=== PATIENT | female | born 2000 | race Asian ===

== ENCOUNTER 2020-01-08 15:32 | Inpatient (IN) ==
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
[2020-01-08 16:20] LABS: Basophils # (auto) 0.01 K/uL (0-0.2); Basophils % (auto) 0.2 %; Eosinophils # (auto) 0.03 K/uL (0-0.5); Eosinophils % (auto) 0.7 %; Hematocrit (blood only) 37.7 % (37-47); Hemoglobin 13.1 g/dL (12.0-16.0); Immature Granulocytes # (auto) 0.01 K/uL (0.00-0.02); Immature Granulocytes % (auto) 0.2 %; Lymphocytes # (auto) 0.96 K/uL (1.2-3.4); Lymphocytes % (auto) 21.3 %; Mean Corpuscular Hgb Conc 34.7 g/dL (32-36); Mean Corpuscular Volume 86.5 fL (80-100); Mean Platelet Volume 8.5 fL (7.4-10.4); Monocytes # (auto) 0.19 K/uL (0.11-0.59); Monocytes % (auto) 4.2 %; Neutrophils # (auto) 3.31 K/uL (1.4-6.5); Neutrophils % (auto) 73.4 %; Platelet Count 264 K/uL (130-400); RDW Coefficient of Variation 12.4 % (11.5-14.5); RDW Standard Deviation 39.2 fL (36.4-46.3); Red Blood Count 4.36 M/uL (4.2-5.4); White Blood Count 4.51 K/uL (4.8-10.8)
[2020-01-08 17:01] LABS: BUN Creatinine Ratio 14.3 (10-20); Calcium 9.1 mg/dl (8.5-10.1); Creatinine Clr Calc Pharmacy 123.8 ml/min; Est GFR (African American) 144.2; Est GFR (Non-African American) 124.4; Potassium 3.8 mmol/L (3.5-5.1)
[2020-01-08 17:16] LABS: Albumin Globulin Ratio 1.1 (0.9-2); Bilirubin,Total 0.4 mg/dl (0.2-1); Globulin 3.5 gm/dl (2.5-4.0); Thyroid Stimulating Hormone 0.851 uIu/ml (0.300-4.500); Total Protein 7.5 gm/dl (6.4-8.2)
[2020-01-08 17:26] LABS: Acetaminophen < 2 ug/ml (10-30); Salicylate < 1.7 mg/dl (2.8-20)
[2020-01-08 17:54] LABS: Appearance Urine Clear (Clear); Bilirubin Urine Negative (Negative); Blood Urine Negative (Negative); Color Urine Yellow; Glucose Urine UA Negative (Negative); Ketones Urine Negative (Negative); Leukocyte Esterase Urine Negative (Negative); Nitrite Urine Negative (Negative); Protein Urine Negative (Negative); Specific Gravity Urine 1.014 (1.000-1.030); Urobilinogen Urine Negative (Negative)
[2020-01-08 18:21] LABS: Amphetamines+Metham, Urine Neg (Neg); Barbiturates, Urine Neg (Neg); Benzodiazepine, Urine Neg (Neg); Cocaine, Urine Neg (Neg); MDMA (Ecstacy), Urine Neg (Neg); Methadone, Urine Neg (Neg); Opiate, Urine Neg (Neg); Phencyclidine, Urine Neg (Neg)
[2020-01-08] MEDS ORDERED: ALUMINUM/MAGNESIUM SUSP 30 ML UDC PO PRN (19:37)
[2020-01-08] MEDS ORDERED: ACETAMINOPHEN 325 MG TAB PO PRN (19:37)
[2020-01-08] MEDS ORDERED: BISMUTH SUBSALICYLATE PER ML OMNICELL CHARGE PO PRN (19:37)
[2020-01-08] MEDS ORDERED: MAGNESIUM HYDROXIDE SUSP 30 ML UDC PO PRN (19:37)
[2020-01-08] MEDS ORDERED: SODIUM CHLORIDE 0.65% NA SOLN 45 ML (OCEAN) PRN (19:37)
[2020-01-08] MEDS: NICOTINE 14 MG/24 HR PATCH TD SCH (21:34)
[2020-01-08] MEDS ORDERED: DOXEPIN HCL 10 MG CAPSULE PO SCH (22:00)
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
[2020-01-09] MEDS: FLUOXETINE HCL 20 MG CAP PO SCH (07:47)
[2020-01-09] MEDS: NICOTINE 14 MG/24 HR PATCH TD SCH (22:52)
--- NOTE | 2020-01-10 08:05 | Psychiatric Progress Note ---
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 These symptoms occurred in the context of interpersonal discord with a new romantic relationship, and appeared consistent with her diagnosis of BPD. She signed in voluntarily, but immediately requested to leave AMA, and has been informed that we will need to mitigate her risk factors before discharging her. Pt did participate in beneficial 1:1 counseling last evening, and also called her parents for a family meeting to discuss safety and discharge planning. Present plan is for patient to return to [place] and live with her parents until the start of fall. Pt was informed that discharge today was not felt to be appropriate, given desire to solidify aftercare/safety plans by ensuring patient has a bridge appointment with her psychiatric providers before she would return to [place] for the summer. Pt verbalized understanding and is agreeable with discharge tomorrow prior to the expiration of her 72-hour notice. Pt reported willingness to call her roommate and friend to plan a way for her doxepin to be brought to the unit for safe disposal, as the medication has been discontinued. (1) Borderline personality disorder: 01/08 -care coordinated with outpatient psychiatrist Dr. Butts, primary diagnosis BPD. Coordinate care with therapist, Yumiko Montana. -Continue inpatient treatment due to ongoing suicide risk. Every 15 minute checks for safety. -Encourage group attendance and participation. Work on healthy coping skills and discharge safety plan. -Discontinue doxepin due to high risk of in overdose. Recommend friend bring the medication into the hospital for safe disposal, as she has a 90-day supply. -Continue fluoxetine 40 mg daily. Recent mood symptoms likely due to personality disorder, is triggered by interpersonal discord, and patient reports mood was good a week ago prior to incident with new boyfriend. -Family meeting with parents and social media marketing specialist today. Explore options of returning home to [place], or staying locally. -Patient has submitted 72-hour notice requesting to withdrawal from treatment. Advised her that I cannot discharge her as risk factors have not been mitigated and she remains at risk for suicide. Consider need to involuntarily commit her if we are unable to appropriately mitigate risk in the 72-hour timeframe. 01/09 - Continue fluoxetine 40mg daily; patient aware that doxepin has been discontinued - Friend/roommate to bring in remaining doxepin for it to be disposed of - Reported plan is for patient to return to [place] at the end of the month, live with parents, and return when fall resumes - Attempt to schedule bridge therapy and medication management appointments prior to her departure home to [place] - Pt denies SI, is able to discuss various coping strategies - Encourage completion of the safety plan Risk Factors Assessment Male: No : No Do You Have Access To A Gun?: No Health Problems: No Mental Health Diagnoses: Yes Substance Use Disorders: No Previous Attempt: Yes Previous Attempt; Highly Lethal: Yes Previous Attempt; Didn't Tell Anyone: Yes Family History of Suicide: No Previous Psychiatric Hospitalization: No Hopelessness: No Smoker: Yes Protective Factors Assessment : No Responsible for Young Children: No Employed: No Stable Relationships: No Supportive Family: Yes Good Rapport with Provider: Yes Interval History Identifying Information ROCIO PETERS is a 19-year-old F [employer] student from [place], has a history of depression, anxiety, and borderline personality disorder, and was admitted on 01/08/20 18:46 on a 201 voluntary commitment for suicidality with multiple plans and an intentional overdose on doxepin last week. She immediately submitted a 72-hour notice requesting to withdrawal from treatment. Chief Complaint "I feel better now. Everything is good, I had a good talk last night." Review of Systems Notes Constitutional: reports restful sleep last evening, despite not taking a sleep medication Cardiovascular: denied Respiratory: denied Gastrointestinal: denied Neurological: denied Psychiatric: denies symptoms other than stated above Total of at least 10 systems reviewed, pertinent positives as above and in HPI. Sleep Information Total Hours of Sleep: 7.75 Sleep Comments: pt on q-15 minute checks Meal Information Percent Meal Consumed - Breakfast: 75 Percent Meal Consumed - Lunch: 100 Percent Meal Consumed - Dinner: 75 Nutrition Comment: per meal record Subjective Subjective Patient was seen & assessed and interval progress reviewed with treatment team. Staff report the patient has had productive conversations with staff and has made a lot of progress over night. Pt did participate in a family meeting with her parents in [place]. Pt is planning to return to [place] to live with her parents until the fall starts. Pt denied SI overnight. Pt's 72-hour notice expires tomorrow evening. Pt was seen today to assess progress since a dmission. Pt states that she is doing much better today, reporting "I feel better now. Everything is good, I had a good talk last night." Pt states that her mood is improved, and she is feeling ready to return home. Pt was updated regarding treatment team desire to schedule bridge appointments, and she is agreeable with this arrangement. Pt believes she benefitted from a conversation last evening regarding her tendency to enter into relationships where "we're not on the same page, or have different ideas about if it's friendship or romantic." Pt states that she was also able to read more during her admission, which has allowed her to reflect on beneficial coping strategies she has would like to make more time for. Pt denies SI, stating "that's all gone now." She denies other needs or concerns today, and was reminded of staff's request that the patient have a friend bring her medications to the unit on discharge to allow for discontinued medications to be disposed of. Physical Exam Psychiatric Orientation: alert, oriented x 3 and cooperative (and pleasant ) Apperance: appropriately dressed and appropriately groomed Eye Contact: good eye contact Motor Behavior: steady gait and station and no abnormal motor movements Speech: normal rate/rhythm/volume of speech Affect: euthymic affect (bright, smiling, interactive) and mood congruent with affect Mood: no depressed mood ("Better today, all better.") Thought Process: goal directed thought process and clear/coherent thought process Thought Content: reality based without delusions; no hopelessness and no loneliness Suicidal Thoughts: denies suicidal thoughts Homicidal Thoughts: denies homicidal thoughts Hallucinations: no auditory hallucinations and no visual hallucinations Cognition: attention grossly intact and language grossly intact Insight: + fair insight Judgement: + fair judgement Vital Signs (Past 24 Hours) Last Vital Signs Temp 36.6 C 01/10/20 06:56 Pulse 82 01/10/20 06:57 Resp 18 01/10/20 06:56 BP 97/64 L 01/10/20 06:57 Pulse Ox 99 01/08/20 19:00 Results & Data ([facility]) Current Inpatient Medications Current Inpatient Medications: Current Inpatient Medications Acetaminophen (Tylenol) 650 mg PO Q4H PRN PRN Reason: Headache or Minor Fever Stop: 02/07/20 19:36 Al Hydrox/Mg Hydrox/Simethicone (Maalox) 30 ml PO Q4H PRN PRN Reason: GI Upset Stop: 02/07/20 19:36 Bismuth Subsalicylate (Kaopectate) 15 ml PO PRN PRN PRN Reason: Loose Stool Stop: 02/07/20 19:36 Fluoxetine HCl (Prozac) 40 mg PO QAM CAIO Stop: 02/08/20 08:59 Last Admin: 01/09/20 07:47 Dose: 40 mg Documented by: Hydroxyzine HCl (Vistaril) 50 mg PO HSZ PRN PRN Reason: Insomnia Stop: 02/07/20 19:36 Last Admin: 01/08/20 21:36 Dose: 50 mg Documented by: Hydroxyzine HCl (Vistaril) 25 mg PO Q4H PRN PRN Reason: Anxiety Stop: 02/07/20 19:36 Magnesium Hydroxide (Milk Of Magnesia) 30 ml PO DAILY PRN PRN Reason: Constipation Stop: 02/07/20 19:36 Miscellaneous (Remove Nicoderm Patch) 1 ea N/A DAILY@[id number] [facility] [place] Stop: 02/08/20 21:58 Last Admin: 01/09/20 22:51 Dose: Not Given Documented by: Nicotine (Nicoderm Cq) 14 mg TD HS CAIO Stop: 02/07/20 21:59 Last Admin: 01/09/20 22:52 Dose: Not Given Documented by: Sodium Chloride ([place] Nasal) 1 - 2 sprays NA PRN PRN PRN Reason: Nasal Dryness/Congestion Stop: 02/07/20 19:36 Mental Health & Subst Abuse Tx Psychiatrist Name of Psychiatrist: Dr. Butts, FREDDY Psychiatrist's Therapist Name of Therapist: Yumiko Salazar Relational Therapy Post Discharge Appointments Primary Care Physician Name Of Family Doctor: NHAN Other #1: Name of Aftercare Appointment: [facility] Phone Number of Aftercare Appointment: [phone]
[2020-01-10] MEDS: FLUOXETINE HCL 20 MG CAP PO SCH (08:25)
[2020-01-10] MEDS: NICOTINE 14 MG/24 HR PATCH TD SCH (22:50)
[2020-01-11] MEDS: FLUOXETINE HCL 20 MG CAP PO SCH (08:21)
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
[2020-01-11] MEDS ORDERED: DESTROY THIS MEDICATION ONE (10:04)
== END 2020-01-11 11:04 | disposition home or self-care (01) | DRG 883 ==
LOC: ED 15:32 → 3S 18:46